=== PATIENT | female | born 1990 ===

== ENCOUNTER 2019-08-17 14:54 | Emergency (ER) | payer BC, OTHER ==
--- NOTE | 2019-08-17 15:00 | ED Physician Documentation ---
Headache - HISTORIAN Historian: patient - HPI Stated Complaint: headache Chief Complaint: Headache Additional Information: Patient presents to ED with a 4 day history of migraine. Patient has a history of migraines and usually has 3-4 per month. She takes over the counter tylenol, aspirin, and caffeine to manage her migraines. This current migraine has been refractory to her usual home remedy. She admits to sensitivity light, sound and nausea. Onset: days ago (4) Timing: gradual New Gradual Onset: Yes Exposure To: none Severity: severe Quality: similar to previous, sharp, pounding Associated Symptoms: sensitivity to light, nausea. denies: fever, problems with vision, neck pain, stiffness Preceding Symptoms: denies: visual disturbance Exacerbated By: light, noise, movement - ROS NEURO/PSYCH: denies: confusion EYES/ENT: denies: difficulty swallowing CVS/RESP: denies: chest pain, shortness of breath GI/: denies: abdominal pain MS/SKIN/LYMPH: denies: rash - PAST HX Medical History: migraines Surgical History: no surgical history Allergies/Adverse Reactions: Allergies Allergy/AdvReac Type Severity Reaction Status Date / Time codeine Allergy Verified 08/17/19 15:04 ondansetron HCl Allergy Verified 08/17/19 15:04 [From Zofran (as hydrochloride)] Home Medications: Ambulatory Orders Medication Instructions Recorded Clonazepam 1 tab PO DAILY 08/17/19 Duloxetine HCl 1 tab PO DAILY 08/17/19 Lamotrigine [Lamictal (Kay)] 1 each PO DAILY 08/17/19 - SOCIAL HX Smoking History: non-smoker Alcohol Use: none Drug Use: none - Family HX Family History: migraine headaches - VITAL SIGNS Vital Signs: Vital Signs Temp Pulse Resp BP Pulse Ox 97.6 F 60 20 103/75 94 08/17/19 15:00 08/17/19 16:17 08/17/19 16:17 08/17/19 16:17 08/17/19 15:00 - REVIEWED ASSESSMENTS Nursing Assessment Reviewed: Yes Vitals Reviewed: Yes Progress - Progress Progress: 1607 Patient states headache has improved. She still has tension in her neck. She would like to try something more. ED Results Lab/Radiology - Orders Orders: ED Orders Category Date Time Status Place IV Lock 1T Care 08/17/19 15:00 Active 0.9 % Sodium Chloride [Normal Saline] 1,000 ml Med 08/17/19 15:00 Discontinued IV Q1H Ketorolac Tromethamine [Toradol] Med 08/17/19 15:00 Discontinued 30 mg IV NOW ONE LORazepam [Ativan] Med 08/17/19 16:08 Discontinued 1 mg IV NOW ONE Metoclopramide HCl [Reglan] Med 08/17/19 15:00 Discontinued 10 mg IVP NOW ONE Orphenadrine Citrate [Norflex] Med 08/17/19 15:00 Discontinued 60 mg IV NOW ONE methylPREDNISolone SOD SUCC [SOLU-Medrol] Med 08/17/19 15:00 Discontinued 125 mg IVP NOW ONE Headache Physical Exam - EXAM General Appearance: no acute distress, alert EENT: PERRL Neck: normal inspection Respiratory: no resp distress, chest non-tender, breath sounds normal CVS: reg. rate & rhythm, heart sounds nml Abdomen: non-tender, nml bowel sounds Skin: color nml, no rash Extremitites: non-tender, normal range of motion, no evidence of injury, no edema - NEURO/PSYCH Higher Functions: alert, oriented x3, nml speech, mood/affect nml Cranial: nml as tested, no evidence of acute CVA Cerebellar: nml as tested Sensorimotor: motor nml, sensation nml Discharge Clincal Impression: Migraine Qualifiers: Migraine type: without aura Status migrainosus presence: without status migrainosus Intractability: not intractable Qualified Code(s): G43.009 - Migraine without aura, not intractable, without status migrainosus Referrals: Primary Doctor,No [Primary Care Provider] - 2 Days Additional Instructions: 1. Drink plenty of fluids to maintain proper hydration 2. Follow up with PCP within 1 week. Discuss neurology consult for better control of migraines 3. Return to ER for new or worsening symptoms Condition: Stable Disposition: 01 HOME, SELF-CARE Decision to Admit: NO Date of Decison to Admit: 08/17/19 Decision Time: 16:31
[2019-08-17] MEDS: 0.9 % SODIUM CHLORIDE 1,000 ML IV ONE (15:32)
[2019-08-17] MEDS: METOCLOPRAMIDE HCL 10 MG/2 ML VIAL IVP ONE (15:45)
[2019-08-17] MEDS: ORPHENADRINE CITRATE 60 MG/2 ML ML IV ONE (15:45)
[2019-08-17] MEDS: methylPREDNISolone SOD SUCC 125 MG/2 ML VIAL IVP ONE (15:45)
[2019-08-17] MEDS: KETOROLAC TROMETHAMINE 30 MG/1ML VIAL IV ONE (15:45)
[2019-08-17] MEDS: LORazepam 2 MG/ML VIAL IV ONE (16:16)
[2019-08-17 16:41] VITALS: BP 105/80
== END 2019-08-17 16:40 | disposition home or self-care (01) ==
LOC: ED 14:54
DX: G43.009 Migraine without aura, not intractable, without status migrainosus (principal)
CPT/HCPCS: 96361; 96374; 96375; 99282; 99284; J1885; J2060; J2360; J2930; J7030; S1016